=== PATIENT | female | born 1990 ===

== ENCOUNTER 2017-04-24 03:05 | Inpatient (IN) | payer MEDICAID ==
--- NOTE | 2017-04-24 03:30 | C.PDOC ---
History Of Present Illness Patient is a transfer from [facility] for psychiatric admission. Patient is being admitted for depression and bizarre behavior. Patient was medically cleared at [facility]. Denies any physical complaints at this time. Time Seen by Provider: 04/24/17 03:08 Chief Complaint (Nursing): Psychiatric Evaluation History Per: Patient History/Exam Limitations: no limitations Onset/Duration Of Symptoms: Hrs Current Symptoms Are (Timing): Still Present Suicide/Self Injury Attempted (Context): None Modifying Factor(s): None Severity: None Pain Scale Rating Of: 0 Associated Symptoms: Depression. denies: Suicidal Thoughts, Suicidal Plan Involuntary Hold By: None Recent travel outside of the [place]: No Past Medical History Reviewed: Historical Data, Nursing Documentation, Vital Signs Vital Signs: Last Vital Signs Temp 98.3 F 04/24/17 03:06 Pulse 74 04/24/17 03:06 Resp 14 04/24/17 03:06 BP 106/68 04/24/17 03:06 Pulse Ox 99 04/24/17 03:30 - Medical History PMH: Anxiety, Depression Surgical History: No Surg Hx Family History: States: No Known Family Hx - Social History Hx Alcohol Use: No Hx Substance Use: No - Immunization History Hx Tetanus Toxoid Vaccination: No Hx Influenza Vaccination: No Hx Pneumococcal Vaccination: No Review Of Systems Constitutional: Negative for: Fever, Chills Gastrointestinal: Negative for: Nausea, Vomiting, Diarrhea Psych: Positive for: Depression Physical Exam - Physical Exam Appears: Non-toxic Skin: Warm, Dry Oral Mucosa: Moist Chest: Symmetrical, No Tenderness Cardiovascular: Rhythm Regular, No Murmur Respiratory: No Rales, No Rhonchi, No Wheezing Gastrointestinal/Abdominal: Soft, No Tenderness Neurological/Psych: Oriented x3, Normal Speech, Normal Cognition ED Course And Treatment O2 Sat by Pulse Oximetry: 99 (Room air) Pulse Ox Interpretation: Normal Disposition Discussed With : Viola Galicia Comment: accepted the pt on his service and took over the care at 3:28 AM Doctor Will See Patient In The: Hospital Counseled Patient/Family Regarding: Studies Performed, Diagnosis - Disposition Disposition: HOSPITALIZED Disposition Time: 03:28 Condition: FAIR - POA Present On Arrival: None - Clinical Impression Clinical Impression: Depression, Schizophrenia - Scribe Statement The provider has reviewed the documentation as recorded by the Scribjoshua Unger All medical record entries made by the Salinasibjoshua were at my direction and personally dictated by me. I have reviewed the chart and agree that the record accurately reflects my personal performance of the history, physical exam, medical decision making, and the department course for this patient. I have also personally directed, reviewed, and agree with the discharge instructions and disposition. Decision To Admit - Pt Status Changed To: Hospital Disposition Of: Inpatient - Admit Certification Admit to Inpatient:: After my assessment, the patient will require hospitalization for at least two midnights. This is because of the severity of symptoms shown, intensity of services needed, and/or the medical risk in this patient being treated as an outpatient. - InPatient: Physician Admission Certification: I certify that this patient requires 2 or more midnights of care for the following reason:: After my assessment, the patient will require hospitalization for at least two midnights. This is because of the severity of symptoms shown, intensity of services needed, and/or the medical risk in this patient being treated as an outpatient. - . Bed Request Type: Psychiatry Admitting Physician: Viola Galicia Patient Diagnosis: Depression, Schizophrenia
[2017-04-24] MEDS ORDERED: Pneumococcal 23-Valent Vaccine IM ONE (05:04)
--- NOTE | 2017-04-24 11:12 | PCM.PSYCH ---
Initial Psychiatric Evaluation - Initial Psychiatric Evaluation Type of Admission: Voluntary Legal Status: Capacity Chief Complaint (in patient's own words): 'I was feeling depressed and anxious' History of Present Illness and Precipitating Events: This is a 26 years old F, , who lives with her and currently unemployed, came to the hospital with depressed mood, catatonia and suicidal ideation with plan to suffocate. Patient remained superficially cooperative but guarded about the details throughout the interview. She appeared somewhat disorganized and remain internally preoccupied. Patient reports that she is feeling depressed and anxious a since past 2 years. As per the patient she was never admitted in any psychiatric hospital. However she reports seeing a psychiatrist, last seen 2 weeks ago. As per the patient since past few weeks she is becoming increasingly depressed because of her lower pelvic pain. 2 days ago she became increasingly depressed and started 'freezing' (became catatonic). became concerned and escorted her to the hospital. Patient remained disorganized and depressed throughout the interview. Patient remained delusional about her lower pelvic pain. As per her she has gone through pelvic MRI, but she still believes there is something wrong. She reports depressed mood, and reports feelings of hopelessness and helplessness. She also reports persecutory delusions that people are following her and police is after her. She reports anxiety and panic attacks but denies any auditory or visual hallucinations. She denies any drinking or any substance abuse. Medical history None reported Current Medications: Active Medications Generic Name Dose Route Start Last Admin Trade Name Freq PRN Reason Stop Dose Admin Gabapentin 100 mg 04/24/17 11:15 Neurontin PO BID YANE Hydroxyzine HCl 25 mg 04/24/17 11:07 Atarax PO Q6 PRN Agitation Lorazepam 0.5 mg 04/24/17 11:04 Ativan PO Q6 PRN Anxiety Sertraline HCl 25 mg 04/24/17 11:00 Zoloft PO DAILY YANE Trazodone HCl 50 mg 04/24/17 22:00 Desyrel PO HS YANE Past Psychiatric History - Past Psychiatric History Previous Treatment History: None Pertinent Medical Hx (Current Medical&Sleep Prob, Allergies): Allergies Allergy/AdvReac Type Severity Reaction Status Date / Time diphenhydramine Allergy Mild Verified 04/24/17 03:29 [From Benadryl] Penicillins Allergy Verified 06/20/17 03:30 Gabapentin [Neurontin] 100 mg PO BID 04/24/17 Review of Systems - Review of Systems All systems: reviewed and no additional remarkable complaints except - Psychiatric Psychiatric: Anxiety, Irritability, Suicidal Ideation Mental Status Examination - Personal Presentation Personal Presentation: Looks stated age - Affect Affect: Constricted, Depressed - Motor Activity Motor Activity: Psychomotor Retardation - Reliability in Providing Information Reliability in Providing Information: Poor, due to alteration in thoughts, Poor , due to altered mood - Speech Speech: Disorganized - Mood Mood: Depressed, Anxious - Formal Thought Process Formal Thought Process: Delusions, Paranoia - Hallucinations/Delusions Delusions: Persecution - Obsessions/Compulsions Obsessions: No Compulsions: No - Cognitive Functions Orientation: Person, Place, Situation, Time Sensorium: Alert Attention/Concentration: Attentive Abstract Thinking: [place] Estimate of Intelligence: Below average Judgement: Imparied, as evidence by: Poor judgement, Imparied, as evidence by: Lack of insight into illness - Risk Risk: Suicidal, Diminished functioning - Strength & Assets Inventory Strength & Assets Inventory: Family support DSM 5 DX - DSM 5 DSM 5 Diagnosis: Major depressive disorder recurrent severe with psychotic features Gen. anxiety disorder - Recommended/Plan of Treatment Treatment Recommendations and Plan of Treatment: Major depressive disorder recurrent severe with psychotic features CBT Psychoeducation Supportive therapy, individual therapy Start Zoloft 25 mg PO daily Gabapentin 100 mg twice a day Start Trazodone 50 mg PO Q HS Gen. anxiety disorder CBT Psychoeducation Supportive therapy, individual therapy Ativan 0.5 mg every 6 hours when necessary - Smoking Cessation Smoking Cessation Initiated: No
--- NOTE | 2017-04-24 20:49 | CP.PCM.CON ---
History of Present Illness - History of Present Illness History of Present Illness: Reason for consultation-pelvic pain HPI 26 y/o G0, admitted to inpatient [facility], with c/o lower abdominal/pelvic pain for last few months.states that she saw a doctor in [facility] and had mri done in april (this month)which was normal.Patient states that she feels strongly that there is something causing her pain in her pelvic area.She also feels there is a mass in her throat OBGYN HX -Unsure LMP of 02/18/2017; denies hx of abnormal pap or std Review of Systems - Cardiovascular Cardiovascular: absent: Chest Pain, Dyspnea - Respiratory Respiratory: absent: Cough - Gastrointestinal Gastrointestinal: Abdominal Pain. absent: Bloating, Nausea, Vomiting - Reproductive: Female Reproductive:Female: absent: Vaginal Discharge, Vaginal Pruritis - Menstruation Menstruation: Menses Variable Past Patient History - Past Social History Smoking Status: Unknown If Ever Smoked - CARDIAC Hx Cardiac Disorders: No - PULMONARY Hx Respiratory Disorders: No - NEUROLOGICAL Hx Neurological Disorder: No - HEENT Hx HEENT Problems: No - RENAL Hx Chronic Kidney Disease: No - ENDOCRINE/METABOLIC Hx Endocrine Disorders: No - HEMATOLOGICAL/ONCOLOGICAL Hx Blood Disorders: No - INTEGUMENTARY Hx Dermatological Problems: No - MUSCULOSKELETAL/RHEUMATOLOGICAL Hx Musculoskeletal Disorders: No - GASTROINTESTINAL Hx Gastrointestinal Disorders: No - GENITOURINARY/GYNECOLOGICAL Hx Genitourinary Disorders: No Hx Sexually Transmitted Disorders: No LMP:: 02/18/17 - PSYCHIATRIC Hx Substance Use: No - SURGICAL HISTORY Hx Surgeries: No - ANESTHESIA Hx Anesthesia: No Meds Allergies/Adverse Reactions: Allergies Allergy/AdvReac Type Severity Reaction Status Date / Time diphenhydramine Allergy Mild Verified 04/24/17 03:29 [From Benadryl] Penicillins Allergy Verified 04/24/17 03:30 - Medications Medications: Current Medications Gabapentin (Neurontin) 100 mg PO BID [facility] Last Admin: 04/24/17 17:12 Dose: 100 mg Hydroxyzine HCl (Atarax) 25 mg PO Q6 PRN PRN Reason: Agitation Last Admin: 04/24/17 17:12 Dose: 25 mg Lorazepam (Ativan) 0.5 mg PO Q6 PRN PRN Reason: Anxiety Last Admin: 04/24/17 11:25 Dose: 0.5 mg Sertraline HCl (Zoloft) 25 mg PO DAILY [facility] Last Admin: 04/24/17 11:25 Dose: 25 mg Trazodone HCl (Desyrel) 50 mg PO [facility] Physical Exam - Constitutional Appears: No Acute Distress - Respiratory Exam Respiratory Exam: Clear to Auscultation Bilateral, NORMAL BREATHING PATTERN - Cardiovascular Exam Cardiovascular Exam: REGULAR RHYTHM - GI/Abdominal Exam GI & Abdominal Exam: Soft. absent: Rebound, Tenderness - Extremities Exam Extremities exam: Negative for: calf tenderness - Back Exam Back exam: absent: CVA tenderness (L), CVA tenderness (R) - Neurological Exam Neurological exam: Alert, Oriented x3 - Psychiatric Exam Psychiatric exam: Normal Affect, Normal Mood - Skin Skin Exam: Normal Color Results - Vital Signs Recent Vital Signs: Last Vital Signs Temp 98 F 04/24/17 08:07 Pulse 83 04/24/17 16:03 Resp 20 04/24/17 08:07 BP 127/82 04/24/17 16:03 Pulse Ox 99 04/24/17 04:03 Assessment & Plan - Assessment and Plan (Free Text) Assessment: patient with c/o pelvic pain Admitted for major depression with psychotic features and generalized anxiety disorder On review of patient hx it is evident that pelvic pain, if any , is of chronic nature.Patient states having a workup done in past but is unable to give information on name of physician or test results will recommend doing an ultrasound to rule out any acute pathology
--- NOTE | 2017-04-25 11:25 | US ---
HISTORY: pelvic pain COMPARISON: None available. TECHNIQUE: Real-time transabdominal and transvaginal ultrasound examination of the pelvis were performed. FINDINGS: UTERUS: Measures 6.1 x 2.6 x 4.1 cm. Normal in size and appearance. No fibroid or other mass lesion seen. ENDOMETRIUM: Measures 3 mm in diameter. Unremarkable. CERVIX: No cervical abnormality identified. RIGHT OVARY: Measures 3.1 x 1.5 x 2.8 cm. No solid mass. Normal flow. LEFT OVARY: Measures 3.2 x 1.6 x 2.4 cm. No solid mass. Normal flow. FREE FLUID: Small amount of physiologic fluid in the cul-de-sac. OTHER FINDINGS: None. IMPRESSION: Small amount of physiologic fluid in the cul-de-sac. No evidence of adnexal mass. No ultrasound evidence of torsion.
--- NOTE | 2017-04-25 15:22 | PCM.PYCHPN ---
Psychiatric Progress Note - Psychiatric Progress Note Patient seen today, length of contact: 16 min Patient Chief Complaint: 'I am feeling anxious' Problems Identified/Issues Discussed: Patient seen and evaluated, chart reviewed and discussed with the nurse. Patient remained isolated, confined and withdrawn. Patient reports depressed mood and feelings of hopelessness and helplessness. Patient appeared paranoid and delusional. She remained anxious that something is wrong with the pelvis. OB /GLOBAL COMMODITY MANAGER was consulted and patient went through the ultrasound today. She remained labile and continued to pace back and forth in the hallways. She is taking medication and denies any side effects. Supportive therapy and psychoeducation were given. Medication Change: No Medical Record Reviewed: Yes Mental Status Examination - Cognitive Function Orientation: Person, Place, Situation, Time Memory: Intact Attention: Poor Concentration: Poor Association: Loose Fund of Knowledge: Poor - Mood Mood: Depressed, Anxious - Affect Affect: Constricted, Depressed - Speech Speech: Soft - Formal Thought Process Formal Thought Process: Delusions, Paranoia - Suicidal Ideation Suicidal Ideation: No - Homicidal Ideation Homicidal Ideation: No Goal/Treatment Plan - Goal/Treatment Plan Need for Continued Stay: Discharge may exacerbated symptoms, Severe functional impairment Progress Toward Problem(s) and Goals/Treatment Plan: Major depressive disorder recurrent severe with psychotic features CBT Psychoeducation Supportive therapy, individual therapy Zoloft 25 mg PO daily Gabapentin 100 mg twice a day Trazodone 50 mg PO Q HS Gen. anxiety disorder CBT Psychoeducation Supportive therapy, individual therapy Ativan 0.5 mg every 6 hours when necessary - Smoking Cessation Smoking Cessation Initiated: No
[2017-04-25 21:29] LABS: URINE BACTERIA RARE (<OCC); URINE BILIRUBIN NEGATIVE (NEGATIVE); URINE BLOOD NEGATIVE (NEGATIVE); URINE COLOR Straw (YELLOW); URINE GLUCOSE (UA) NORMAL (Normal); URINE KETONE NEGATIVE (NEGATIVE); URINE LEUKOCYTE ESTERASE NEG Leu/uL (Negative); URINE PROTEIN NEGATIVE (NEGATIVE); URINE UROBILINOGEN NORMAL mg/dL (0.2-1.0); WBC URINE 1 /hpf (0-5)
[2017-04-26 09:04] LABS: EOS % 0.4 % (0.0-4.0)
[2017-04-26 09:06] LABS: CHLORIDE 97 mmol/L (98-107); SODIUM 137 mmol/L (132-148)
[2017-04-26 09:08] LABS: GFR AFRICAN-AMERICAN > 60
[2017-04-26 09:09] LABS: ALB/GLOB RATIO 1.4 (1.0-2.1); ALKALINE PHOSPHATASE 49 U/L (38-126); ALT/SGPT 75 U/L (9-52); AST/SGOT 34 U/L (14-36); BILIRUBIN,TOTAL 0.8 mg/dL (0.2-1.3); BLOOD UREA NITROGEN 11 mg/dL (7-17); CARBON DIOXIDE 26 mmol/L (22-30); GLUCOSE,RANDOM 128 mg/dL (65-105); TOTAL PROTEIN 7.9 g/dL (6.3-8.3)
[2017-04-26 09:10] LABS: CALCIUM 8.9 mg/dl (8.6-10.4)
[2017-04-26 09:26] LABS: LYMPH # 0.7 K/uL (1.0-4.3); MONO # 0.4 K/uL (0.0-0.8); WHITE BLOOD COUNT 6.5 K/uL (4.8-10.8)
[2017-04-26 09:58] LABS: BASO % 0.4 % (0.0-2.0); HEMATOCRIT 45.8 % (34.0-47.0); LYMPH % 10.8 % (20.0-40.0); MEAN CELL VOLUME 95.9 fL (81.0-99.0); MEAN CORPUSCULAR HGB CONC 33.4 g/dL (33.0-37.0); MEAN PLATELET VOLUME 8.4 fL (7.2-11.7); MONO % 6.7 % (0.0-10.0); RED CELL DISTRIBUTION WIDTH 12.5 % (11.5-14.5)
--- NOTE | 2017-04-26 11:16 | PCM.PYCHPN ---
Psychiatric Progress Note - Psychiatric Progress Note Patient seen today, length of contact: 16 min Patient Chief Complaint: 'I am feeling anxious' Problems Identified/Issues Discussed: Patient seen and evaluated, chart reviewed and discussed with the nurse. As per the staff patient remained disorganized and internally preoccupied with abdominal pain yesterday. Today patient continued to pace back and forth in the hallways. She remained delusional and paranoid about her abdominal pain. Patient reports depressed mood and feelings of hopelessness and helplessness. She remained anxious that something is wrong with her pelvis. Her ultrasound came as negative and all blood work is negative. She remained labile and anxious. She is taking medication and denies any side effects. Supportive therapy and psychoeducation were given. Spoke with the Shemar # [phone]. He reports that patient is losing increasing amount of weight since past few months. And now she is obsessed with abdominal/pelvic pain. She has gone through MRI and other tests but all are negative so far. Medication Change: Yes (Start Seroquel, increase Zoloft) Medical Record Reviewed: Yes Mental Status Examination - Cognitive Function Orientation: Person, Place, Situation, Time Memory: Intact Attention: Poor Concentration: Poor Association: Loose Fund of Knowledge: Poor - Mood Mood: Depressed, Anxious - Affect Affect: Constricted, Depressed - Speech Speech: Soft - Formal Thought Process Formal Thought Process: Delusions, Paranoia, Loosening of associations - Suicidal Ideation Suicidal Ideation: No - Homicidal Ideation Homicidal Ideation: No Goal/Treatment Plan - Goal/Treatment Plan Need for Continued Stay: Discharge may exacerbated symptoms, Severe functional impairment Progress Toward Problem(s) and Goals/Treatment Plan: Major depressive disorder recurrent severe with psychotic features CBT Psychoeducation Supportive therapy, individual therapy Zoloft 50 mg PO daily Gabapentin 300 mg twice a day Trazodone 50 mg PO Q HS Seroquel 50 mg by mouth daily at bedtime Gen. anxiety disorder CBT Psychoeducation Supportive therapy, individual therapy Ativan 0.5 mg every 6 hours when necessary - Smoking Cessation Smoking Cessation Initiated: No
--- NOTE | 2017-04-27 18:22 | PCM.PYCHPN ---
Psychiatric Progress Note - Psychiatric Progress Note Patient seen today, length of contact: 17 min Patient Chief Complaint: "Anxious" Problems Identified/Issues Discussed: The pt is seen, chart reviewed, case discussed with staff. Support given, CBT used briefly No new symptoms reported, but anxiety and lots of somatization. Improving slowly and needs some more time She is a very odd patient, somewhat thought disordered and she could be having psychosis but denies AVH/del. Except for her preoccupation about her pelvic pain that is. No SEs from medications, risks discussed. After care discussed, and specifications writer also invited her to a meeting next week. Medication Change: No Medical Record Reviewed: Yes Mental Status Examination - Cognitive Function Orientation: Person, Place, Situation, Time Memory: Intact Attention: Poor Concentration: Poor Association: Loose Fund of Knowledge: Poor - Mood Mood: Depressed, Anxious - Affect Affect: Blunted - Speech Speech: Soft - Formal Thought Process Formal Thought Process: Delusions (somatic), Paranoia, Loosening of associations - Suicidal Ideation Suicidal Ideation: No - Homicidal Ideation Homicidal Ideation: No Goal/Treatment Plan - Goal/Treatment Plan Need for Continued Stay: Discharge may exacerbated symptoms, Severe functional impairment Progress Toward Problem(s) and Goals/Treatment Plan: Increase seroquel Chg Trazodone to prn No chg in zoloft family meeting Attend meetings Indiv and group tx Psychoed and support Estimated Date of D/C: 05/02/17
[2017-04-29 06:55] VITALS: RESP 18; O2SAT 98
--- NOTE | 2017-04-30 00:50 | PCM.PYCHPN ---
Psychiatric Progress Note - Psychiatric Progress Note Patient seen today, length of contact: 15 min Patient Chief Complaint: i had a nervous breakdown Problems Identified/Issues Discussed: symptom management Medical Problems: nothing acute Diagnostic Results: nothing acute DSM 5 Symptoms Update: poor appetite Medication Change: No Medical Record Reviewed: Yes Mental Status Examination - Cognitive Function Orientation: Person, Place, Situation, Time Memory: Intact Attention: Poor Concentration: Poor Association: Loose Fund of Knowledge: Poor - Mood Mood: Depressed, Anxious - Affect Affect: Blunted - Speech Speech: Appropriate - Formal Thought Process Formal Thought Process: Delusions (somatic), Paranoia - Suicidal Ideation Suicidal Ideation: No - Homicidal Ideation Homicidal Ideation: No Goal/Treatment Plan - Goal/Treatment Plan Need for Continued Stay: Discharge may exacerbated symptoms, Severe functional impairment Progress Toward Problem(s) and Goals/Treatment Plan: mdd with psychosis seroquel zoloft supportive psychotherapy dayan neurontin Estimated Date of D/C: 05/02/17 - Smoking Cessation Smoking Cessation Initiated: No
--- NOTE | 2017-04-30 03:24 | PCM.PYCHPN ---
Psychiatric Progress Note - Psychiatric Progress Note Patient seen today, length of contact: 15 min Patient Chief Complaint: I'M FEELING BETTER. THE TAPER IS FINISHED Problems Identified/Issues Discussed: PAWS [employer] Medical Problems: NOTHING ACUTE Diagnostic Results: REVIEWED DSM 5 Symptoms Update: ANXIETY Medication Change: No Medical Record Reviewed: Yes Mental Status Examination - Cognitive Function Orientation: Person, Place, Situation, Time Memory: Intact Attention: WNL Concentration: WNL Association: WNL Fund of Knowledge: WNL - Mood Mood: Anxious - Affect Affect: Blunted - Speech Speech: Appropriate - Formal Thought Process Formal Thought Process: Paranoia - Suicidal Ideation Suicidal Ideation: No - Homicidal Ideation Homicidal Ideation: No Goal/Treatment Plan - Goal/Treatment Plan Need for Continued Stay: Discharge may exacerbated symptoms, Severe functional impairment Progress Toward Problem(s) and Goals/Treatment Plan: mdd with psychosis supportive psychotherapy dayan neurontin Estimated Date of D/C: 05/02/17 - Smoking Cessation Smoking Cessation Initiated: No
--- NOTE | 2017-04-30 14:08 | PCM.PYCHPN ---
Psychiatric Progress Note - Psychiatric Progress Note Patient seen today, length of contact: 16 min Patient Chief Complaint: "I need to go to a rehab" Problems Identified/Issues Discussed: The pt is seen, chart reviewed, case discussed with staff. Support given, CBT and MD used briefly No new symptoms reported, improving slowly and needs some more time Still anxious though And very odd, slightly thought disordered, has grimacing, repetitive questioning and also out of the blue she began to call rehabs No SEs from medications, risks discussed. After care discussed again Medication Change: No Medical Record Reviewed: Yes Mental Status Examination - Cognitive Function Orientation: Person, Place, Situation, Time Memory: Intact Attention: WNL Concentration: WNL Association: WNL Fund of Knowledge: WNL - Mood Mood: Anxious - Affect Affect: Constricted (odd) - Speech Speech: Appropriate - Formal Thought Process Formal Thought Process: Paranoia - Suicidal Ideation Suicidal Ideation: No - Homicidal Ideation Homicidal Ideation: No Goal/Treatment Plan - Goal/Treatment Plan Need for Continued Stay: Discharge may exacerbated symptoms, Severe functional impairment Progress Toward Problem(s) and Goals/Treatment Plan: Increase seroquel Chg Trazodone to prn No chg in zoloft family meeting Attend meetings Indiv and group tx Psychoed and support Estimated Date of D/C: 05/01/17
[2017-05-01 07:37] VITALS: BP 117/79; PULSE 101; TEMP 98.4
--- NOTE | 2017-05-01 10:08 | PCM.PYCHDC ---
Mental Status Examination - Mental Status Examination Orientation: Person, Place, Situation, Time Memory: Intact Mood: Neutral Affect: Constricted Speech: Soft Attention: WNL Concentration: WNL Association: WNL Fund of Knowledge: WNL Formal Thought Process: No Impairment Description of patient's judgement and insight: good, fair Psychotic Thoughts and Behaviors: denies any AVH Suicidal Ideation: No Current Homicidal Ideation?: No Discharge Summary - Discharge Note Reason for Hospitalization: This is a 26 years old F, , who lives with her and currently unemployed, came to the hospital with depressed mood, catatonia and suicidal ideation with plan to suffocate. Patient remained superficially cooperative but guarded about the details throughout the interview. She appeared somewhat disorganized and remain internally preoccupied. Patient reports that she is feeling depressed and anxious a since past 2 years. As per the patient she was never admitted in any psychiatric hospital. However she reports seeing a psychiatrist, last seen 2 weeks ago. As per the patient since past few weeks she is becoming increasingly depressed because of her lower pelvic pain. 2 days ago she became increasingly depressed and started 'freezing' (became catatonic). became concerned and escorted her to the hospital. Patient remained disorganized and depressed throughout the interview. Patient remained delusional about her lower pelvic pain. As per her she has gone through pelvic MRI, but she still believes there is something wrong. She reports depressed mood, and reports feelings of hopelessness and helplessness. She also reports persecutory delusions that people are following her and police is after her. She reports anxiety and panic attacks but denies any auditory or visual hallucinations. She denies any drinking or any substance abuse. Consultations:: List each consultation separately and include: 1. Reason for request. 2. Findings. 3. Follow-up Summary of Hospital Course include:: 1. Description of specific treatment plan utilized for patients during their course of treatmen. 2. Summarize the time- course for resolution of acute symptoms and/or regressed behaviors. 3. Describe issues identified and worked on during hospitalization. 4. Describe medication utilized. 5. Describe medical problems identified and treated. 6. Reassessment of suicide risk Summary of Hospital Course: During the course of her stay, patient (pt) started progressively improving and she no longer remained anxious, depressed and paranoid. Her mood and paranoia started getting better and she started attending groups and meetings and started socializing. The doses of her medications were maximized and patient denied any feelings of hopelessness, helplessness, and worthlessness, denied any problem with the sleep or appetite, denied suicidal ideation or homicidal ideation. Pt denied any auditory or visual hallucinations. Patient reported improvement in her mood and tolerated these medications very well and denied any side effects. - Final Diagnosis (DSM 5) Condition upon Discharge: FAIR DSM 5: Major depressive disorder recurrent severe with psychotic features Gen. anxiety disorder eating disorder Disposition: HOME/ ROUTINE Follow-up Treatment Plan: Education: Pt was educated and counseled about the risks and benefits of taking and not taking medications. Pt was educated and counseled about the risks of drinking and abusing drugs. Pt was educated and counseled to go to the ER or call 911 if pt develop suicidal ideation or homicidal ideation, worsening of symptoms or severe side effects of the meds. Prescriptions/Medication Reconciliation: Gabapentin [Neurontin] 300 mg PO BID #60 cap hydrOXYzine HCl [Atarax] 25 mg PO BID #60 tab QUEtiapine [Seroquel] 100 mg PO HS #30 tab Sertraline [Zoloft] 100 mg PO DAILY #30 tab traZODone [Desyrel] 50 mg PO HS PRN #30 tab PRN Reason: Insomnia - Smoking Cessation Smoking Cessation Medication prescribed: No - Antipsychotic Medications Pt discharged on 2 or more routine antipsychotic medications: No
== END 2017-05-01 14:15 | disposition home or self-care (01) | DRG 430 ==
LOC: C.ER 03:05 → C.5E 03:29
PROVIDERS: ADMIT Psychiatry & Neurology Psychiatry; ATTEND Psychiatry & Neurology Psychiatry
PROC: GZHZZZZ Group Psychotherapy (ICD-10-PCS; principal; 2017-04-24)
PROC: GZ58ZZZ Individual Psychotherapy, Cognitive-Behavioral (ICD-10-PCS; 2017-04-24)
PROC: GZ56ZZZ Individual Psychotherapy, Supportive (ICD-10-PCS; 2017-04-24)
DX: F33.3 Major depressive disorder, recurrent, severe with psychotic symptoms (principal); R45.851 Suicidal ideations; F20.9 Schizophrenia, unspecified; F41.1 Generalized anxiety disorder; G89.29 Other chronic pain; R10.2 Pelvic and perineal pain; Z88.0 Allergy status to penicillin